=== PATIENT | male | born 1985 | race Caucasian/White ===

== ENCOUNTER 2017-07-18 07:52 | Emergency (ER) | payer BC ==
[~2017-07-18] VITALS: Ht 172.7 cm; Wt 83.6 kg
[2017-07-18 07:56] VITALS: Ht 172.7 cm; Wt 83.6 kg
[2017-07-18] MEDS ORDERED: AMOX1TAB10 PO (08:31)
[2017-07-18] MEDS ORDERED: NPH10OT RIGHT EAR (08:31)
[2017-07-18] MEDS ORDERED: NAPR-260 PO (08:31)
--- NOTE | 2017-07-18 09:05 | ERD ---
ER Documentation Chief Complaint Date/Time DATE: 07/18/17 TIME: 09:02 Chief Complaint rt ear pain x 3 days HPI 32-year-old male coming in complaining of right ear pain 3 days. Patient went to the [facility] 1 week ago and believes he got water in his ear. Patient has not used any medications for symptoms. Denies any drainage from his ear. Denies vomiting. Denies runny nose. Denies headache. Denies sore throat. No sick contacts. ROS All systems reviewed and are negative except as per history of present illness. Medications Home Meds Active Scripts Naproxen* (Naprosyn*) 500 Mg Tablet, 500 MG PO BID Y for PAIN AND/OR INFLAMMATION, #30 TAB Prov:SAMSON MONSALVE PA-C 07/18/17 Amoxicillin/Potassium Clav (Amox-Clav 875-125 mg Tablet) 875-125 mg Tab, 1 TAB PO BID for 7 Days, #14 TAB Prov:SAMSON MONSALVE PA-C 07/18/17 Neomycin/Polymyxin/Hydrocort* (Cortisporin* Otic) 10 Ml Susp, 4 DROP RIGHT EAR QID for 7 Days, EA Prov:SAMSON MONSALVE PA-C 07/18/17 Allergies Allergies: Coded Allergies: Penicillins (Verified Allergy, Unknown, 07/18/17) Uncoded Allergies: PCN (Allergy, Intermediate, 07/18/17) PMhx/Soc Medical and Surgical Hx: pt denies Medical Hx, pt denies Surgical Hx Hx Alcohol Use: No Hx Substance Use: No Hx Tobacco Use: No Physical Exam Vitals Vital Signs Date Time Temp Pulse Resp B/P Pulse Ox O2 Delivery O2 Flow Rate FiO2 07/18/17 07:56 98.7 78 18 137/76 99 Physical Exam GENERAL: The patient is well-appearing, well-nourished, in no acute distress HEENT: Atraumatic. Conjunctivae are pink. Pupils equal, round, and reactive to light. There is no scleral icterus. Erythema noted to the right TM and external ear canal. Mild purulence collected within the external ear canal. Oropharynx clear. No nystagmus or photophobia. NECK: C-spine is soft and supple. There is no meningismus. There is no cervical lymphadenopathy. No JVD. No bruits. No goiter. CHEST: Clear to auscultation bilaterally. There are no rales, wheezes or rhonchi. HEART: Regular rate and rhythm. No murmurs, clicks, rubs Procedures/MDM MDM: 32-year-old male coming in complaining of right ear pain. Patient's exam is concerning for otitis externa. I will treat with oral and topical antibiotics. I have low suspicion for mastoiditis. Low suspicion for meningitis or sepsis. Low suspicion for retained foreign body. Patient is recommended to follow-up for close evaluation with primary doctor within 1 to 2 days for close evaluation. Departure Diagnosis: Primary Impression: Right ear pain Condition: Stable Patient Instructions: Otitis Externa (Child) Referrals: [facility] YOU HAVE RECEIVED A MEDICAL SCREENING EXAM AND THE RESULTS INDICATE THAT YOU DO NOT HAVE A CONDITION THAT REQUIRES URGENT TREATMENT IN THE EMERGENCY DEPARTMENT. FURTHER EVALUATION AND TREATMENT OF YOUR CONDITION CAN WAIT UNTIL YOU ARE SEEN IN YOUR DOCTORS OFFICE WITHIN THE NEXT 1-2 DAYS. IT IS YOUR RESPONSIBILITY TO MAKE AN APPOINTMENT FOR FOLOW-UP CARE. IF YOU HAVE A PRIMARY DOCTOR --you should call your primary doctor and schedule an appointment IF YOU DO NOT HAVE A PRIMARY DOCTOR YOU CAN CALL OUR PHYSICIAN REFERRAL HOTLINE AT IF YOU CAN NOT AFFORD TO SEE A PHYSICIAN YOU CAN CHOSE FROM THE FOLLOWING [facility][1] [id number] [facility]. [facility] [address] [facility]. [facility] [address] [facility]. [facility] [address] [facility]. [facility] [address] [facility]. [facility]. [address] Additional Instructions: FOLLOW UP WITH YOUR PRIMARY CARE PHYSICIAN TOMORROW.Return to this facility if you are not improving as expected. SAMSON MONSALVE PA-C Jul 18, 2017 09:05
== END 2017-07-18 09:16 | disposition home or self-care (01) ==
LOC: FTE 07:52
DX: H92.01 Otalgia, right ear (principal)
CPT/HCPCS: 99283